=== PATIENT | female | born 1965 | race Caucasian/White ===

== ENCOUNTER → 2023-10-25 13:55 | Outpatient (BNVA) | payer OTHER, SELFPAY | PROVIDERS: Visit Provider Physician Assistant Medical | DX: S63.592A Other specified sprain of left wrist, initial encounter (principal); S70.02XA Contusion of left hip, initial encounter; S46.811A Strain of other muscles, fascia and tendons at shoulder and upper arm level, right arm, initial encounter; W01.0XXA Fall on same level from slipping, tripping and stumbling without subsequent striking against object, initial encounter | CPT/HCPCS: 99204 ==

== ENCOUNTER → 2023-10-28 14:08 | Outpatient (BNVA) | payer OTHER, SELFPAY | PROVIDERS: Visit Provider Physician Assistant Medical | DX: S63.592A Other specified sprain of left wrist, initial encounter (principal); S70.02XA Contusion of left hip, initial encounter; S30.0XXA Contusion of lower back and pelvis, initial encounter; W01.0XXA Fall on same level from slipping, tripping and stumbling without subsequent striking against object, initial encounter | CPT/HCPCS: 99213 ==

== ENCOUNTER 2023-11-04 06:28 | Outpatient (REF) | payer OTHER, SELFPAY | END 2023-11-04 06:29 | disposition home or self-care (01) | LOC: HO.HOSX 06:28 | PROVIDERS: Visit Provider Physician Assistant | DX: S63.592A Other specified sprain of left wrist, initial encounter (principal) | CPT/HCPCS: 99202 ==

== ENCOUNTER 2023-11-04 10:43 | Outpatient (AMB) | payer OTHER, SELFPAY ==
--- NOTE | 2023-11-04 11:00 | MHC.OFFVIS ---
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 Patient reports that she fell forward landing on her left side. She was seen at work connection where xrays were done, placed in velcro wrist brace and referred to orthopedics. Currently she has pain and swelling at her ulnar aspect of wrist. 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 She was seen at work connection where x-rays were performed, she was placed in a Velcro wrist brace and was referred to our office. She currently states she has pain and swelling at the ulnar aspect of her wrist. [facility] Surgical History (Updated 11/04/23 @ 11:05 by JESSICA Lynn) Hx of hand surgery History of back surgery Hx of neck surgery Social History (Updated 11/04/23 @ 11:05 by JESSICA Lynn) Patient Tobacco Use Status: Never used Tobacco Current occupational status: employed Current occupation: [employer], right hand dominant Review of Systems Const All systems reviewed & are unremarkable except as noted in HPI and below Physical Exam Vital Signs: BMI result Body Mass Index 28.3 Const General: cooperative, healthy appearing, comfortable, no acute distress, well developed and alert Orientation/consciousness: patient oriented x3 HEENT Head: Yes normal to inspection, Yes normocephalic and Yes atraumatic Eyes General: appearance normal, both eyes and all related structures Resp Effort & Inspection: normal respiratory effort and able to speak in complete sentences Cardio Rate: regular rate Peripheral pulses: Peripheral pulses 2+ throughout GI Palpation (GI): Soft to palpation Skin Lesions: no lesions Rashes: no rashes Neuro General: patient oriented x3 Extrem Other: Left wrist: Normal to inspection. She does have some swelling at the ulnar side of wrist with tenderness to palpation. She has some discomfort with wrist flexion and supination. 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 No pain over the scaphoid or the scaffold lunate region. No pain over the distal radius NVI. Results Reviewed Results Reviewed: xrays of the left wrist obtained on 10.25.23 are negative for acute fracture Assessment & Plan Assessment & Plan (1) Complete tear of ulnocarpal ligamentous complex of left wrist: Code(s): S63.592A - Other specified sprain of left wrist, initial encounter Plan She was fit for a new Velcro comfort wrist splint which she will use while working wand with any lifting activities. She may also benefit from sleeping with this to avoid further discomfort. An MRI arthrogram of left wrist has been ordered to further evaluate the ligamentous structures of the wrist. I will see her back once this complete. Orders: Orders MR wrist LT w con Today S63.592A - Other specified sprain of left wrist, initial encounter XR wrist LT min 3V Today M25.532 - Pain in left wrist Patient Instructions: Scribed for Omero Shannon PA-C, by Colby Phillips medical attendant, on 11/04/2023 at 11:00 AM EST. I, Omero Shannon PA-C, have personally reviewed and agree with the information entered by the scribe. Coding Level of Care Code New Pt Level 3 (18038) Diagnoses Complete tear of ulnocarpal ligamentous complex of left wrist S63.592A
[2023-11-04 11:01] VITALS: BMI 28.3
== END 2023-11-04 11:34 | disposition home or self-care (01) ==
PROVIDERS: Visit Provider Physician Assistant
DX: S63.592A Other specified sprain of left wrist, initial encounter (principal); W19.XXXA Unspecified fall, initial encounter; Y99.0 Civilian activity done for income or pay; Z04.2 Encounter for examination and observation following work accident
CPT/HCPCS: 99203

== ENCOUNTER 2023-12-06 13:06 | Outpatient (REF) | payer OTHER, SELFPAY ==
--- NOTE | ~2023-12-06 | MR_ITS ---
EXAMINATION: MRI Left wrist. INDICATION: Left Wrist injury and pain. TECHNIQUE: Examination was performed in a high field strength MRI scanner. Multiplanar multisequence MR imaging of the wrist was performed after intra-articular injection or 2 mL of gadolinium/saline (1:200) contrast mixture. FINDINGS: BONES: The visualized Left wrist bones are intact with normal signal and alignment. CARTILAGE: There is perforation of the left triangular ligament central disc, leakage of intra-articular contrast into the left distal radioulnar joint. The left distal radioulnar ligament is ruptured as well. The meniscal homologue, ulnotriquetral ligament and ulnolunate ligament of the triangular fibrocartilage complex are unremarkable. The extensor carpi ulnaris tendon is also intact. LIGAMENTS: The scapholunate and lunotriquetral intercarpal ligaments are intact. IMPINGEMENT: In the carpal tunnel, there are no signs of displacement or extrinsic compression of the median nerve. In the Guyon's canal, the ulnar nerve is surrounded by normal fat with no impingement or displacement. MR/MR wrist LT w con IMPRESSION: 1. There are tears of the left triangular ligament central disc and left distal radioulnar ligament. 2. No evidence of left wrist impingement syndrome.
--- NOTE | ~2023-12-06 | FL_ITS ---
Left wrist arthrogram Indications: Left wrist pain. Intra-articular gadolinium injection is needed prior to MRI. Procedure: Risks and benefits and possible complications were discussed with the patient and the consent form was signed. The patient was placed prone on the fluoroscopy table. The left wrist was prepped and draped in normal sterile fashion. 1% buffered lidocaine was used for anesthesia. A 25-gauge hypodermic needle was used to access the radiocarpal joint. Intra-articular position of the needle within the radiocarpal joint was verified using 0.5 cc of Omnipaque 300. A total of 2 mL of gadolinium/saline (1:200) contrast mixture was then injected into the radiocarpal joint. The needle was then removed and a Band-Aid was applied to the injection site. The patient tolerated the procedure well and was sent for to MRI. There were no immediate complications. FL/FL arthrogram wrist LT Impression: Fluoroscopic left wrist arthrogram The procedure was performed by Girma Hylton PA-C, and directly supervised by Dr. Khan.
[2023-12-06] MEDS: gadobutroL 2 ML VIAL IVPUSH (15:01)
== END 2023-12-06 13:07 | disposition home or self-care (01) ==
LOC: HO.XRAY 13:06
PROVIDERS: Visit Provider Physician Assistant
DX: S63.592A Other specified sprain of left wrist, initial encounter (principal)
CPT/HCPCS: 25246; 73115; 73222; A9585

== ENCOUNTER → 2023-12-06 13:33 | Outpatient (BNV) | payer OTHER, SELFPAY | PROVIDERS: Visit Provider Student in an Organized Health Care Education/Training Program | DX: M25.532 Pain in left wrist (principal) | CPT/HCPCS: 25246; 73115 ==

== ENCOUNTER 2023-12-15 13:20 | Outpatient (AMB) | payer OTHER, SELFPAY ==
[2023-12-15 14:19] VITALS: BMI 28.3
--- NOTE | 2023-12-15 14:19 | A.OFFVIS_ITS ---
Intake Vital Signs 12/15/23 14:19 Height 5 ft 5 in Weight 170 lb BMI 28.3 Handedness Right Intake Visit Reasons: OV - Left Wrist MRI Reivew 30 minPer TM Intake Note: Jesi is a 58 year old female who presents today for a MRI review for her left wrist. Patient reports her pain hasn't changed. Allergies No Known Allergies Allergy (Verified 12/15/23 14:24) HPI OV - Left Wrist MRI Reivew 30 minPer TM HPI Details Jesi is a 58 year old right hand dominant woman who presents for an MRI review of her left wrist pain, S/P fall at work, DOI: 10/25/23. This is a work-related injury. 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 She complains of pain and swelling in the ulnar aspect of her wrist, and says this is unchanged from prior. She reports having some new numbness in her thumb. She continues to wear her velcro wrist splint with daily activity, and while sleeping. She removes it during the day while at rest. She says she has pain at times when sitting in her brace, at rest. She has a hx of a right LRTI performed several years ago at an outside clinic. [facility] Surgical History (Updated 11/04/23 @ 11:05 by JESSICA Lynn) Hx of hand surgery History of back surgery Hx of neck surgery Social History (Updated 11/04/23 @ 11:05 by JESSICA Lynn) Patient Tobacco Use Status: Never used Tobacco Current occupational status: employed Current occupation: [employer], right hand dominant Review of Systems Const All systems reviewed & are unremarkable except as noted in HPI and below Physical Exam Vital Signs: BMI result Body Mass Index 28.3 Const General: cooperative, healthy appearing and no acute distress Orientation/consciousness: patient oriented x3 HEENT Head: Yes normocephalic and Yes atraumatic Eyes EOM: EOMs intact bilaterally Resp Effort & Inspection: normal respiratory effort and able to speak in complete sentences Cardio Jugular venous distension: no JVD Skin General skin exam: turgor normal Rashes: no rashes Neuro General: patient oriented x3 Extrem Other: Evaluation of Left Upper Extremity: The patient is alert, oriented, and in no acute distress Neuro: Median, Ulnar, Radial nerves motor and sensory intact and sensation is normal to the tips of all digits Vascular: Cap refill brisk ROM: She can make a fist and extend all of her digits and has no locking or catching. She can make a tight fist with good strength and no pain She has full and symmetrical pronation with no pain comparing right to left. She has full and symmetrical supination comparing right to left but has a little bit of tightness on the dorsum of the DRUJ. Again not really pain but tightness. No catching or clunk. She has a little bit of tightness in flexion and extension, likely secondary to wearing the Velcro wrist splint. No tenderness over the distal radius or radiocarpal joint. She does have some mild swelling over the distal ulna and ulnocarpal joint compared with the opposite side. She does have some tenderness over the ulnocarpal joint, over the ECU tendon, and also foveal tenderness The DRUJ felt stable to me when comparing right to left. With both wrists placed on the table in pronation, the distal ulna was not particularly prominent on the left compared to the right other than because of some mild swelling over the ulnocarpal joint. In taking her wrist through some pronation and supination I did not appreciate any subluxation of the ECU tendon. Positive shoulder sign at the basal joint of the thumb The basal joint is not particularly tender to palpation today. Skin: No lacerations or abrasions. General: No Ecchymosis. No Erythema or evidence of infection. Left wrist radiographs: Three views plus of the left wrist from 10/25/2023 were reviewed by me today in clinic. They do not appear to show any fracture or dislocation. She does have however have significant left basal joint osteoarthritis with near complete loss of the joint, and significant osteophyte formation. Let wrist MRI: FINDINGS: BONES: The visualized Left wrist bones are intact with normal signal and alignment. CARTILAGE: There is perforation of the left triangular ligament central disc, leakage of intra-articular contrast into the left distal radioulnar joint. The left distal radioulnar ligament is ruptured as well. The meniscal homologue, ulnotriquetral ligament and ulnolunate ligament of the triangular fibrocartilage complex are unremarkable. The extensor carpi ulnaris tendon is also intact. LIGAMENTS: The scapholunate and lunotriquetral intercarpal ligaments are intact. IMPINGEMENT: In the carpal tunnel, there are no signs of displacement or extrinsic compression of the median nerve. In the Guyon's canal, the ulnar nerve is surrounded by normal fat with no impingement or displacement. MR/MR wrist LT w con IMPRESSION: 1. There are tears of the left triangular ligament central disc and left distal radioulnar ligament. 2. No evidence of left wrist impingement syndrome. Dictated By: Hugo Jackson 12/09/23 Psych Appearance: grossly normal Affect: normal affect Attitude: cooperative Assessment & Plan Assessment & Plan (1) Traumatic tear of triangular fibrocartilage complex (TFCC) of left wrist: Code(s): S63.592A - Other specified sprain of left wrist, initial encounter Plan Assessment & Plan: 1. Left wrist injury, TFCC tear, From a fall, DOI: 10/25/23 This is a work-related injury I educated her about this condition I discussed operative and non-operative treatment options I think we should manage this non-operatively at this time She will continue to wear her wrist brace with daily activities, but should remove her brace when at home at rest. She will work on wrist ROM exercises at home I discussed activity modification, she is to lift nothing heavier than a cellphone and avoid any heavy pinching, gripping, or twisting activities for the next 4 weeks. After 4 weeks she can begin to slowly increase her weight limit. 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 She will follow up in 4-6 weeks. I explained to her that we can wait to see how she does. If she continues to have pain, particularly when she starts using the wrist for activities, we may discuss a possible wrist arthroscopy for wrist evaluation, and possible arthroscopic assisted TFCC repair. She is in agreement with this plan Scribed for Sherita Perez MD by Jay Fields, medical receptionist assistant, on 12/15/23 at 2:35 PM, EST. Coding Level of Care Code Est Pt Level 4 (39379) Diagnoses Traumatic tear of triangular fibrocartilage complex (TFCC) of left wrist S 63.592A
== END 2023-12-15 14:54 | disposition home or self-care (01) ==
PROVIDERS: Visit Provider Orthopaedic Surgery
DX: S63.592A Other specified sprain of left wrist, initial encounter (principal)
CPT/HCPCS: 99213

== ENCOUNTER → 2023-12-15 13:20 | Outpatient (BNVA) | payer OTHER, SELFPAY | PROVIDERS: Visit Provider Orthopaedic Surgery | DX: S63.592A Other specified sprain of left wrist, initial encounter (principal) | CPT/HCPCS: 99212 ==

== ENCOUNTER 2024-01-26 14:15 | Outpatient (AMB) | payer OTHER, SELFPAY ==
--- NOTE | 2024-01-26 14:22 | MHC.OFFVIS ---
Intake Vital Signs 01/26/24 14:23 Height 5 ft 5 in Weight 170 lb BMI 28.3 Intake Visit Reasons: OV - Left Wrist -30 min appointment Intake Note: Jesi 59 yr old feamahansel presents today for her follow up visit for her tear of triangular fibrocartilage complex (TFCC) of left wrist to discuss surgical intervention vs conservative treatment. Currently states she has a burning sensation on her ulnar aspect of hand and wrist. Allergies No Known Allergies Allergy (Verified 01/26/24 14:23) HPI OV - Left Wrist -30 min appointment HPI Details Jesi is a 58 year old right hand dominant woman who returns for a follow-up of her left TFCC tear, S/P fall at work, DOI: 10/25/23. This is a work-related injury. 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 She complains of pain and swelling in the ulnar aspect of her wrist, and says this is unchanged from prior. She reports an occasional burning sensation in the ulnar side of her wrist whenever her skin is touched. She says this improves wit icing the area. She continues to have some numbness in her thumb. She has a hx of a right LRTI performed several years ago at an outside clinic. [facility] Surgical History (Updated 11/04/23 @ 11:05 by JESSICA Lynn) Hx of hand surgery History of back surgery Hx of neck surgery Social History (Updated 11/04/23 @ 11:05 by JESSICA Lynn) Patient Tobacco Use Status: Never used Tobacco Current occupational status: employed Current occupation: [employer], right hand dominant Review of Systems Const All systems reviewed & are unremarkable except as noted in HPI and below Physical Exam Vital Signs: BMI result Body Mass Index 28.3 Const General: no acute distress and alert Orientation/consciousness: patient oriented x3 Neuro General: patient oriented x3 Extrem Other: Evaluation of Left Upper Extremity: The patient is alert, oriented, and in no acute distress Neuro: Median, Ulnar, Radial nerves motor and sensory intact and sensation is normal to the tips of all digits Vascular: Cap refill brisk ROM: She can make a fist and extend all of her digits and has no locking or catching. She can make a tight fist with good strength and no pain She has full and symmetrical pronation with no pain comparing right to left. She has full and symmetrical prono-supination now without pain. This is an improvement. The DRUJ feels stable on exam. There is perhaps slightly more dorsal prominence of the distal ulna with the wrist in full pronation compared to the opposite wrist. Good improvement in wrist flexion and extension. Now symmetrical. In taking her wrist through some pronation and supination I did not appreciate any subluxation of the ECU tendon. Only minimal tenderness over the ECU tendon were passed over the wrist. Again this is really quite minimal. No pain referred to the ECU tendon with resisted wrist extension. No tenderness over the dorsal aspect of the ulnocarpal joint. Not particularly tender in the fovea. DRUJ is not tender today. Today she had some hypersensitivity even to light touch of the skin over the distal ulnar aspect of the forearm. This is an area of skin going from just ulnar to the distal wrist crease extending proximally perhaps 5 or 6 cm. There is no redness or warmth. But she does have hypersensitivity to light touch of the skin. She was most tender to palpation over the ulnar aspect of the pisotriquetral joint. Not particularly tender with compression directly over the pisiform bone. Positive shoulder sign at the basal joint of the thumb The basal joint is not particularly tender to palpation today. Left wrist radiographs: Three views plus of the left wrist from 10/25/2023 were reviewed by me today in clinic. They do not appear to show any fracture or dislocation. She does have however have significant left basal joint osteoarthritis with near complete loss of the joint, and significant osteophyte formation. Let wrist MRI: FINDINGS: BONES: The visualized Left wrist bones are intact with normal signal and alignment. CARTILAGE: There is perforation of the left triangular ligament central disc, leakage of intra-articular contrast into the left distal radioulnar joint. The left distal radioulnar ligament is ruptured as well. The meniscal homologue, ulnotriquetral ligament and ulnolunate ligament of the triangular fibrocartilage complex are unremarkable. The extensor carpi ulnaris tendon is also intact. LIGAMENTS: The scapholunate and lunotriquetral intercarpal ligaments are intact. IMPINGEMENT: In the carpal tunnel, there are no signs of displacement or extrinsic compression of the median nerve. In the Guyon's canal, the ulnar nerve is surrounded by normal fat with no impingement or displacement. MR/MR wrist LT w con IMPRESSION: 1. There are tears of the left triangular ligament central disc and left distal radioulnar ligament. 2. No evidence of left wrist impingement syndrome. Dictated By: Hugo Jackson 12/09/23 Psych Appearance: grossly normal Affect: normal affect Attitude: cooperative Office Procedures Fracture Care Details: No fracture, injection wrist joint Fracture Billing Code: Fracture Billing Code Assessment & Plan Assessment & Plan (1) Traumatic tear of triangular fibrocartilage complex (TFCC) of left wrist: Code(s): S63.592A - Other specified sprain of left wrist, initial encounter (2) Hypersensitivity: Code(s): T78.40XA - Allergy, unspecified, initial encounter (3) Left wrist pain: Code(s): M25.532 - Pain in left wrist Plan Assessment & Plan: 1. Left wrist injury, TFCC tear, From a fall, DOI: 10/25/23 This is a work-related injury 2. Left wrist pain & hypersensitivity Skin on ulnar aspect of wrist & distal forearm painful to light touch Most tender to palpation over the ulnar aspect of the pisotriquetral joint today. I educated her about this condition We are both happy that her wrist is feeling quite a bit better since her last visit and with the exercises she has been doing at home. I discussed operative and non-operative treatment options. I do not think the TFCC tear is particularly bothering her at this time. I recommend a diagnostic/therapeutic wrist injection into the pisotriquetral joint today, and she is in agreement She will continue work on wrist ROM exercises at home, which she has found very helpful. I ordered OT hand therapy to work on desensitization & increasing function I discussed activity modification, she is to slowly increase her weight limit and using her hand for daily activities Injection #1 : The risks and benefits of a steroid injection including but not limited to risk of damage to blood vessels, nerve, tendon, infection, skin bleaching, persistent or worsening pain, and failure to improve symptoms were discussed with the patient and they wish to proceed with the steroid injection. Once consent was obtained the skin over the ulnar aspect of the piso-triquetral joint was sterilely prepped. The ulnar aspect of the pisotriquetral joint was then injected with a combination of 1 mL of (40 mg/ml} Depo-Medrol and 1% plain Lidocaine. The patient appears to have tolerated the procedure well and with no complications. She had early relief before leaving clinic today. This did not help with the skin hypersensitivity, and I explained to her that this is expected. She knows that they may not have another steroid injection into this joint for least 4 months. 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 She will follow up in 2 months Scribed for Sherita Perez MD by Jay Fields, medical concierge, on 01/26/24 at 3:45 PM, EST. Orders: Orders OT Evaluation and Treatment Today M25.532 - Pain in left wrist, S63.592A - Other specified sprain of left wrist, initial encounter, T78.40XA - Allergy, unspecified, initial encounter Coding Level of Care Code Est Pt Level 4 (32334) Diagnoses Traumatic tear of triangular fibrocartilage complex (TFCC) of left wrist S63.592A Hypersensitivity T78.40XA Left wrist pain M25.532 CPT Codes Fracture Care - Fracture Billing Code: Fracture Billing Code ([id number])
[2024-01-26 14:23] VITALS: BMI 28.3
== END 2024-01-26 16:11 | disposition home or self-care (01) ==
PROVIDERS: Visit Provider Orthopaedic Surgery
DX: S63.592A Other specified sprain of left wrist, initial encounter (principal); M25.532 Pain in left wrist; T78.40XA Allergy, unspecified, initial encounter
CPT/HCPCS: 20605; 99214

== ENCOUNTER → 2024-01-26 14:15 | Outpatient (BNVA) | payer OTHER, SELFPAY | PROVIDERS: Visit Provider Orthopaedic Surgery | DX: S65.3 Injury of deep palmar arch (principal); M25.532 Pain in left wrist; T78.40XA Allergy, unspecified, initial encounter | CPT/HCPCS: 20605; 99212; J1020 ==

== ENCOUNTER 2024-05-09 15:05 | Outpatient (AMB) | payer OTHER, SELFPAY ==
[2024-05-09 16:17] VITALS: BMI 28.3
--- NOTE | 2024-05-09 16:17 | A.OFFVIS_ITS ---
Vital Signs 05/09/24 16:17 05/09/24 16:18 Height 5 ft 5 in Weight 170 lb BMI 28.3 Handedness Right Intake Visit Reasons: OV - Left Wrist ROM check Intake Note: Jesi 59 yr old female presents today for her follow up visit for her left wrist pain. She is s/p piso-triquetral joint injection from 01/26/24. States her pain and ROM have improved. Allergies No Known Allergies Allergy (Verified 05/09/24 16:19) HPI HPI OV - Left Wrist ROM check: Details: Jesi is a 58 year old right hand dominant woman who returns for a follow-up of her left TFCC tear, S/P fall at work, DOI: 10/25/23. She is S/P pisotriquetral joint injection on 01/26/24. This is a work-related injury. She is here for a ROM check. She says she is doing better, and her pain & ROM have improved. She found good relief from her previous injection. She is concerned that her wrist still feels swollen, and she has mild discomfort with some wrist motion. She is happy that her pain has improved and she no longer has any hypersensitivity She has a hx of a right LRTI performed several years ago at an outside clinic [facility] Surgical History (Updated 11/04/23 @ 11:05 by JESSICA Lynn) Hx of hand surgery History of back surgery Hx of neck surgery Social History Patient Tobacco Use Status: Never used Tobacco Current occupational status: employed Current occupation: [employer], right hand dominant Physical Exam Vital Signs: BMI result Body Mass Index 28.3 Const General: no acute distress and alert Orientation/consciousness: patient oriented x3 Neuro General: patient oriented x3 Extrem Other: Evaluation of Left Upper Extremity: The patient is alert, oriented, and in no acute distress sensation is normal to the tips of all digits She can make a fist and extend all of her digits She can make a tight fist with good strength and no pain She has full and symmetrical prono-supination without pain Full and nearly symmetrical wrist flexion & extension The DRUJ feels stable and similar to the opposite unaffected side.. Minimal tenderness over the pisotriquestral joint Left wrist MRI: FINDINGS: BONES: The visualized Left wrist bones are intact with normal signal and alignment. CARTILAGE: There is perforation of the left triangular ligament central disc, leakage of intra-articular contrast into the left distal radioulnar joint. The left distal radioulnar ligament is ruptured as well. The meniscal homologue, ulnotriquetral ligament and ulnolunate ligament of the triangular fibrocartilage complex are unremarkable. The extensor carpi ulnaris tendon is also intact. LIGAMENTS: The scapholunate and lunotriquetral intercarpal ligaments are intact. IMPINGEMENT: In the carpal tunnel, there are no signs of displacement or extrinsic compression of the median nerve. In the Guyon's canal, the ulnar nerve is surrounded by normal fat with no impingement or displacement. MR/MR wrist LT w con IMPRESSION: 1. There are tears of the left triangular ligament central disc and left distal radioulnar ligament. 2. No evidence of left wrist impingement syndrome. Dictated By: Hugo Jackson 12/09/23 Psych Appearance: grossly normal Affect: normal affect Attitude: cooperative Assessment & Plan Assessment & Plan (1) Left wrist pain: Code(s): M25.532 - Pain in left wrist Category: Medical (2) Hypersensitivity: Code(s): T78.40XA - Allergy, unspecified, initial encounter (3) Traumatic tear of triangular fibrocartilage complex (TFCC) of left wrist: Code(s): S63.592A - Other specified sprain of left wrist, initial encounter Category: Medical Plan Assessment & Plan: 1. Left wrist pain & hypersensitivity, related to Pisotriquetral joint From a fall, DOI: 10/25/23 This is a work-related injury S/P Pisotriquetral joint injection, date of injection: 01/26/24 I educated her about this condition She has had considerable improvement following this injection. She also worked on exercises at home and feels like she is got improved range of motion. She has a bit concerned that the pain could come back, but feels like she is much better right now. I reassured her, encouraged her to get back to activities as tolerated. If her symptoms return we may consider a repeat injection in the future. She may follow up p.r.n.. 2. Left wrist TFCC tear, From a fall, DOI: 10/25/23 This is asymptomatic Scribed for Sherita Perez MD by Jay Fields, medical psychotherapist, on 05/09/24 at 4:30 PM, EST. Coding Level of Care Code Est Pt Level 3 (00185) Diagnoses Left wrist pain M25.532 Hypersensitivity T78.40XA Traumatic tear of triangular fibrocartilage complex (TFCC) of left wrist S63.592A
== END 2024-05-09 16:46 | disposition home or self-care (01) ==
PROVIDERS: Visit Provider Orthopaedic Surgery
DX: M25.532 Pain in left wrist (principal); S63.592A Other specified sprain of left wrist, initial encounter; T78.40XA Allergy, unspecified, initial encounter
CPT/HCPCS: 99213

== ENCOUNTER → 2024-05-09 15:05 | Outpatient (BNVA) | payer OTHER, SELFPAY | PROVIDERS: Visit Provider Orthopaedic Surgery | DX: S63.592A Other specified sprain of left wrist, initial encounter (principal); T78.40XA Allergy, unspecified, initial encounter | CPT/HCPCS: 99212 ==